=== PATIENT | male | born 1995 | race African-American/Black ===

== ENCOUNTER 2019-03-01 22:27 | Inpatient (IN) | payer MEDICAID, OTHER | END 2019-03-03 14:15 | disposition home or self-care (01) | LOC: TELE 22:28 → ER 22:27 → TELE-WESTW 03-02 07:50 | DX: I21.A1 Myocardial infarction type 2 (principal); N17.0 Acute kidney failure with tubular necrosis; I47.1 Supraventricular tachycardia ==